=== PATIENT | male | born 1985 | race American Indian/Alaskan Native ===

== ENCOUNTER 2016-07-07 20:52 | Emergency (ER) | payer OTHER ==
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
[2016-07-07 23:59] VITALS: BP 142/90
== END 2016-07-07 23:55 | disposition home or self-care (01) ==
LOC: ED 20:52
DX: S13.4XXA Sprain of ligaments of cervical spine, initial encounter (principal); F17.200 Nicotine dependence, unspecified, uncomplicated; V89.2XXA Person injured in unspecified motor-vehicle accident, traffic, initial encounter; Y93.89 Activity, other specified; Y92.89 Other specified places as the place of occurrence of the external cause; Y99.8 Other external cause status
CPT/HCPCS: 72040

== ENCOUNTER 2016-07-09 12:29 | Emergency (ER) | payer OTHER ==
[2016-07-09 12:55] VITALS: BP 131/85
--- NOTE | 2016-07-09 14:19 | Emergency Department Report ---
ED ENT HPI - General Chief complaint: Sore Throat Stated complaint: POSSIBLE ALLERGIC TO PRESCRIPTION Time Seen by Provider: 07/09/16 14:19 Source: patient Mode of arrival: Ambulatory Limitations: No Limitations - History of Present Illness MD complaint: sore throat -: Gradual Location: throat Severity: mild Severity scale (0 -10): 3 Quality: burning Worsens with: swallowing Associated Symptoms: pain with swallowing, sore throat - Related Data Previous Rx's Medication Instructions Recorded Last Taken Type Metaxalone [Skelaxin] 800 mg PO TID #12 tablet 07/07/16 Unknown Rx traMADol [Ultram 50 MG tab] 50 mg PO Q4HR PRN #12 tablet 07/07/16 Unknown Rx Penicillin Vk [Veetids TAB] 500 mg PO QID #80 tablet 07/09/16 Unknown Rx traMADol [Ultram 50 MG tab] 50 mg PO Q4HR PRN #10 tablet 07/09/16 Unknown Rx Allergies Allergy/AdvReac Type Severity Reaction Status Date / Time No Known Allergies Allergy Verified 07/07/16 21:03 ED Dental HPI - General Chief complaint: Sore Throat Stated complaint: POSSIBLE ALLERGIC TO PRESCRIPTION Time Seen by Provider: 07/09/16 14:19 Source: patient Mode of arrival: Ambulatory Limitations: No Limitations - History of Present Illness complaint: sore throat -: Gradual Severity: mild Quality: burning Worsens with: swallowing Dental Associated Symptons: Yes: Sore Throat. No: Headache, Earache - Related Data Previous Rx's Medication Instructions Recorded Last Taken Type Metaxalone [Skelaxin] 800 mg PO TID #12 tablet 07/07/16 Unknown Rx traMADol [Ultram 50 MG tab] 50 mg PO Q4HR PRN #12 tablet 07/07/16 Unknown Rx Penicillin Vk [Veetids TAB] 500 mg PO QID #80 tablet 07/09/16 Unknown Rx traMADol [Ultram 50 MG tab] 50 mg PO Q4HR PRN #10 tablet 07/09/16 Unknown Rx Allergies Allergy/AdvReac Type Severity Reaction Status Date / Time No Known Allergies Allergy Verified 07/07/16 21:03 ED Review of Systems ROS: Stated complaint: POSSIBLE ALLERGIC TO PRESCRIPTION Other details as noted in HPI Constitutional: denies: chills, fever Eyes: denies: eye discharge, vision change ENT: throat pain. denies: ear pain Respiratory: denies: cough, shortness of breath, wheezing Gastrointestinal: denies: abdominal pain, nausea, vomiting, diarrhea Musculoskeletal: myalgia Skin: denies: rash, lesions Neurological: denies: headache, paresthesias ED Past Medical Hx - Past Medical History Previous Medical History?: No - Surgical History Past Surgical History?: No - Social History Smoking Status: Current Every Day Smoker Substance Use Type: None - Medications Home Medications: Home Medications Medication Instructions Recorded Confirmed Last Taken Type Metaxalone [Skelaxin] 800 mg PO TID #12 tablet 07/07/16 Unknown Rx traMADol [Ultram 50 MG tab] 50 mg PO Q4HR PRN #12 tablet 07/07/16 Unknown Rx Penicillin Vk [Veetids TAB] 500 mg PO QID #80 tablet 07/09/16 Unknown Rx traMADol [Ultram 50 MG tab] 50 mg PO Q4HR PRN #10 tablet 07/09/16 Unknown Rx ED Physical Exam - General Limitations: No Limitations General appearance: alert, in no apparent distress - Eye Eye exam: Present: PERRL, EOMI - Expanded ENT Exam Expanded Throat exam: Positive: tonsillar erythema - Neck Neck exam: Present: normal inspection, full ROM. Absent: tenderness, meningismus, lymphadenopathy - Respiratory Respiratory exam: Present: normal lung sounds bilaterally. Absent: respiratory distress - Cardiovascular Cardiovascular Exam: Present: regular rate - Neurological Exam Neurological exam: Present: alert, oriented X3, CN II-XII intact, normal gait - Skin Skin exam: Present: warm, dry, intact, normal color. Absent: rash ED Course Vital Signs 07/09/16 12:51 Temperature 98.4 F Pulse Rate 65 Respiratory 18 Rate Blood Pressure 131/85 O2 Sat by Pulse 100 Oximetry Critical care attestation.: If time is entered above; I have spent that time in minutes in the direct care of this critically ill patient, excluding procedure time. ED Disposition Clinical Impression: Pharyngitis Disposition: DISCHARGED TO HOME OR SELFCARE Is pt being admited?: No Condition: Stable Instructions: Strep Throat (ED) Prescriptions: Penicillin Vk [Veetids TAB] 500 mg PO QID #80 tablet traMADol [Ultram 50 MG tab] 50 mg PO Q4HR PRN #10 tablet PRN Reason: Pain Referrals: PRIMARY CARE,MD [Primary Care Provider] - 3-5 Days
== END 2016-07-09 15:04 | disposition home or self-care (01) ==
LOC: ED 12:29
DX: J02.9 Acute pharyngitis, unspecified (principal); F17.200 Nicotine dependence, unspecified, uncomplicated
CPT/HCPCS: 99282

== ENCOUNTER 2016-10-09 07:01 | Emergency (ER) | payer SELFPAY ==
[2016-10-09] MEDS ORDERED: FUL-GLO OP ONE (08:05)
[2016-10-09] MEDS ORDERED: BOOSTRIX IM ONE (08:05)
[2016-10-09] MEDS ORDERED: TETRACAINE 0.5% OU STA (08:05)
[2016-10-09] MEDS ORDERED: MOTRIN PO ONE (08:34)
[2016-10-09] MEDS ORDERED: NORCO 5/325 PO ONE (08:34)
--- NOTE | 2016-10-09 08:34 | Emergency Department Report ---
ED Eye Problem HPI - General Chief complaint: Eye Problems Stated complaint: L EYE INJURY/PAIN Time Seen by Provider: 10/09/16 08:19 Source: patient Mode of arrival: Ambulatory Limitations: No Limitations - History of Present Illness Initial comments: PT c/o L eye pain. 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 PT states on Sunday night, something fell in his eye. PT states that he rubbed his eye and kept working. PT states yesterday he developed light sensitivity and this morning, his pain increased. MD chief complaint: eye pain, eye redness, eye injury -: Gradual, days(s) Onset Description: gradual Location: left eye Place: work If Injury: other (debris fell into eye at work on Sunday ) Eye Symptoms: burning, redness, pain, discharge, blurry vision, photophobia Severity scale (0 -10): 10 If Pain, Quality: sharp, burning Consistency: constant Context: injury Associated Symptoms: none. denies: headache Treatments Prior to Arrival: other (sunglasses, helped yesterday, not helping today ) - Related Data Previous Rx's Medication Instructions Recorded Last Taken Type Acetaminophen/Codeine [Tylenol #3] 1 tab PO Q6H PRN #12 tab 10/09/16 Unknown Rx Erythromycin [Erythromycin Ophth 1 cm OD QID 7 Days 10/09/16 Unknown Rx Oint] Ibuprofen [Motrin] 600 mg PO Q8H PRN #20 tablet 10/09/16 Unknown Rx Allergies Allergy/AdvReac Type Severity Reaction Status Date / Time No Known Allergies Allergy Verified 07/07/16 21:03 ED Review of Systems ROS: Stated complaint: L EYE INJURY/PAIN Other details as noted in HPI Constitutional: denies: chills, fever Eyes: as per HPI, eye pain, eye discharge Gastrointestinal: denies: nausea, vomiting Skin: denies: rash, change in color Neurological: denies: headache ED Past Medical Hx - Past Medical History Previous Medical History?: No - Surgical History Past Surgical History?: No - Social History Smoking Status: Current Every Day Smoker Substance Use Type: Alcohol, Marijuana - Medications Home Medications: Home Medications Medication Instructions Recorded Confirmed Last Taken Type Acetaminophen/Codeine [Tylenol #3] 1 tab PO Q6H PRN #12 tab 10/09/16 Unknown Rx Erythromycin [Erythromycin Ophth 1 cm OD QID 7 Days 10/09/16 Unknown Rx Oint] Ibuprofen [Motrin] 600 mg PO Q8H PRN #20 tablet 10/09/16 Unknown Rx ED Physical Exam - General Limitations: No Limitations General appearance: alert, in no apparent distress - Head Head exam: Present: atraumatic, normocephalic, normal inspection - Eye Eye exam: Present: PERRL, EOMI, conjunctival injection. Absent: periorbital swelling, periorbital tenderness Pupils: Present: normal accommodation - Expanded Eye Exam Expanded Eyelids: Normal Inspection: Left Pupils: Regular, Round: Bilateral Sclera/Conjunctival: Injection: Left, Foreign Body: Left (noted on Wood's exam, + corneal abrasion and fb at the 5 oclock position of pupil ) Visual acuity (R) = 20/: 20 Visual acuity (L) = 20/: 40 With correction: No - ENT ENT exam: Present: normal exam, normal external ear exam - Neck Neck exam: Present: normal inspection, full ROM - Respiratory Respiratory exam: Present: normal lung sounds bilaterally. Absent: respiratory distress, chest wall tenderness - Cardiovascular Cardiovascular Exam: Present: regular rate, normal rhythm - Extremities Exam Extremities exam: Present: normal inspection, full ROM - Back Exam Back exam: Present: normal inspection, full ROM. Absent: tenderness, CVA tenderness (R), CVA tenderness (L) - Neurological Exam Neurological exam: Present: alert, oriented X3 - Psychiatric Psychiatric exam: Present: normal affect, normal mood - Skin Skin exam: Present: warm, dry, intact, normal color ED Course Vital Signs 10/09/16 10/09/16 07:46 09:41 Temperature 98.5 F 98.4 F Pulse Rate 71 63 Respiratory 16 18 Rate Blood Pressure 149/105 Blood Pressure 145/91 [Right] O2 Sat by Pulse 99 99 Oximetry - Reevaluation(s) Reevaluation #1: 10/09/16 08:37 Dr Harper aware of pt and PE findings. Dr Harper also examined pt and agrees with plan of care. pt reports decrease in pain sp tetracaine Reevaluation #2: 10/09/16 09:26 PT states pain decreased sp fb removal. PT aware he will need ophthalmology follow up. Dr Harper re-examined pt and confirms no fb seen. - Eye Procedure Alcaine Drops Administered: Yes Eye FB Removal: removal w/ needle (25 gauge ) Progress: after pt confirmed good pain control with Thayer and Tetracaine, I removed ocular fb from cornea with 25 gauge needle. After fb loosened, a moisten sterile cotton swab was used to remove fb from eye. no residual fb noted. - Pulse Oximetry Interpretation Digit-Finger Initial Pulse Oximetry Readin Actions Taken: none ED Medical Decision Making - Differential Diagnosis corneal abrasion, fb, conjuctivitis Critical Care Time: No Critical care attestation.: If time is entered above; I have spent that time in minutes in the direct care of this critically ill patient, excluding procedure time. ED Disposition Clinical Impression: Need for Tdap vaccination Corneal foreign body Qualifiers: Encounter type: initial encounter Laterality: left Qualified Code(s): T15.02XA - Foreign body in cornea, left eye, initial encounter Corneal abrasion Qualifiers: Encounter type: initial encounter Laterality: left Qualified Code(s): S05.02XA - Injury of conjunctiva and corneal abrasion without foreign body, left eye, initial encounter Disposition: DC- TO HOME OR SELFCARE Is pt being admited?: No Does the pt Need Aspirin: No Condition: Stable Instructions: Corneal Abrasion (ED), Eye Foreign Body (ED) Additional Instructions: Call an eye doctor today to arrange follow up wear eye protection when you are working No driving or alcohol after taking Tylenol #3 for pain follow up with PCP in 3-5 days for bp recheck. Prescriptions: Acetaminophen/Codeine [Tylenol #3] 1 tab PO Q6H PRN #12 tab PRN Reason: Pain , Severe (7-10) Erythromycin [Erythromycin Ophth Oint] 1 cm OD QID 7 Days Ibuprofen [Motrin] 600 mg PO Q8H PRN #20 tablet PRN Reason: Pain Referrals: PRIMARY CARE, [Primary Care Provider] - 3-5 Days MARI SELLERS MD [Staff Physician] - 3-5 Days MILLY GARCIA MD [Staff Physician] - 3-5 Days [facility] [Outside] - 3-5 Days Forms: Work/School Release Form(ED) Time of Disposition: 09:32
[2016-10-09 09:42] VITALS: BP 145/91
== END 2016-10-09 09:41 | disposition home or self-care (01) ==
LOC: ED 07:01
DX: T15.02XA Foreign body in cornea, left eye, initial encounter (principal); F17.210 Nicotine dependence, cigarettes, uncomplicated; F12.10 Cannabis abuse, uncomplicated; X58.XXXA Exposure to other specified factors, initial encounter; Y93.89 Activity, other specified; Y92.89 Other specified places as the place of occurrence of the external cause; Y99.8 Other external cause status
CPT/HCPCS: 90471; 90715; 99283

== ENCOUNTER 2021-02-04 02:06 | Emergency (ER) | payer OTHER ==
[2021-02-04 02:20] VITALS: BP 142/98
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
== END 2021-02-04 04:50 | disposition home or self-care (01) ==
LOC: ED 02:06
DX: S16.1XXA Strain of muscle, fascia and tendon at neck level, initial encounter (principal); S39.012A Strain of muscle, fascia and tendon of lower back, initial encounter; S96.912A Strain of unspecified muscle and tendon at ankle and foot level, left foot, initial encounter; F17.200 Nicotine dependence, unspecified, uncomplicated; F12.90 Cannabis use, unspecified, uncomplicated; Z72.89 Other problems related to lifestyle; Z79.899 Other long term (current) drug therapy; V87.7XXA Person injured in collision between other specified motor vehicles (traffic), initial encounter; Y93.89 Activity, other specified; Y92.488 Other paved roadways as the place of occurrence of the external cause; Y99.8 Other external cause status
CPT/HCPCS: 72040; 72100; 99283